=== PATIENT | male | born 1940 | race Caucasian/White ===

== ENCOUNTER → 2023-09-30 07:38 | Outpatient (REF) | payer MEDICARE, SELFPAY ==
[2023-09-30 08:52] LABS: Albumin 4.1 g/dl (3.5-5.0); Blood Urea Nitrogen 25 mg/dl (9-20); Calcium 9.6 mg/dl (8.4-10.2); Carbon Dioxide 23 mmol/L (22-30); Chloride 109 mmol/L (98-107); Glucose 125 mg/dl (70-99); Phosphorus 3.6 mg/dl (2.5-4.5); Potassium 5.1 mmol/L (3.5-5.1); Sodium 140 mmol/L (135-145); eGFR > 60.00
[2023-09-30 09:15] LABS: PSA, Total - Screen 1.93 ng/ml (0.0-4.0)
[2023-09-30 09:34] LABS: Glycohemoglobin (HgbA1c) 6.3 % (4.0-5.6)
[2023-10-02 11:07] LABS: Intact PTH 38.1 pg/ml (13.6-85.8)
== END ==
LOC: REG 07:38
PROVIDERS: ATTENDING PHYSICIAN Internal Medicine
DX: E11.22 Type 2 diabetes mellitus with diabetic chronic kidney disease (principal); N18.31 Chronic kidney disease, stage 3a; I10 Essential (primary) hypertension; N40.1 Benign prostatic hyperplasia with lower urinary tract symptoms; Z12.5 Encounter for screening for malignant neoplasm of prostate
CPT/HCPCS: 36415; 80069; 83036; 83970; G0103